=== PATIENT | female | born 1990 | race Caucasian/White ===

== ENCOUNTER 2022-10-29 20:31 | Emergency (ER) | payer OTHER ==
[2022-10-29] MEDS ORDERED: CLINDAMYCIN 150 MG (CLEOCIN) CAP PO STA (21:04)
[2022-10-29] MEDS ORDERED: RX-CLINDAMYCIN 150 MG (CLEOCIN) CAP PPK#4 PO STA (21:04)
[2022-10-29] MEDS ORDERED: CLIN-144 PO (21:10)
[2022-10-29 21:12] VITALS: BP 152/98
--- NOTE | 2022-10-29 21:14 | ED Integumentary General ---
General Chief Complaint: Skin/Wound Problems Stated Complaint: ABSCESS ON GROIN Nursing Triage Note: Pt presents with a left groin abscess that she noticed about 3 weeks ago Source: patient History of Present Illness Date Seen by Provider: Oct 29, 2022 Time Seen by Provider: 20:37 Initial Comments 32-year-old female presenting with complaints of abscess to her left lower abdomen area. This is been there about 3 to 4 weeks and has intermittently drained some. She does have a history of hidradenitis and recurrent abscesses. She denies any known history of MRSA. She had noticed some redness streaking away from the abscess today when she took a shower so she was concerned that it might be getting worse. She has a small darker area at the center of the abscess that appears to be more bruised. The abscess is just at the lower abdomen and upper part of her groin in the hair line on the left side. She denies having a fever, chills, body aches, nausea, vomiting, diarrhea. She does take doxycycline once a day to help with acne and help prevent outbreaks. She also uses a clindamycin gel to help prevent hidradenitis. She did take Bactrim in September for a different abscess. She denies any allergies to medications. Timing/Duration: getting worse (Over the last 3 to 4 weeks) Severity: moderate Location: torso (Lower abdomen and upper part of the hairline in her groin) Possible Cause: no cause identified Modifying Factors: worse with scratching Associated Symptoms: No blisters, No change in skin texture, No edema, No fever, No flushing, No headache, No hives, No jaundice, No malaise, No nasal congestion, No numbness, No pallor, No paresthesia, No petechiae, No rash, No sore throat, No swelling/mass/lumps, No tingling Allergies and Home Medications Allergies Coded Allergies: No Known Drug Allergies (Unverified , 10/29/22) Patient Home Medication List Home Medication List Reviewed: Yes Clindamycin HCl (Clindamycin HCl) 300 Mg Capsule, 300 MG PO Q8H Prescribed by: NICK WATTERS on 10/29/222109 Review of Systems Review of Systems Constitutional: No chills, No fever EENTM: no symptoms reported Respiratory: no symptoms reported Cardiovascular: no symptoms reported Gastrointestinal: no symptoms reported Genitourinary: no symptoms reported Musculoskeletal: no symptoms reported Skin: see HPI Psychiatric/Neurological: No Symptoms Reported Past Ccgtmvw-Edctlf-Nckuhe Hx Patient Social History Tobacco Use?: No Use of E-Cig and/or Vaping dev: No Substance use?: No Alcohol Use?: No Pt feels they are or have been: No Past Medical History Surgery/Hospitalization HX: Hidradenitis suppurative, recurrent boils Physical Exam Vital Signs Vital Signs - First Documented 10/29/22 20:35 Temp 36.4 Pulse 108 Resp 18 B/P (MAP) 152/98 (116) Pulse Ox 98 O2 Delivery Room Air Capillary Refill : Less Than 3 Seconds General Appearance: WD/WN, no apparent distress, obese Cardiovascular: normal peripheral pulses Gastrointestinal: normal bowel sounds, non tender, soft, no pulsatile mass Skin: warm/dry, ecchymosis (Mild bruising with erythema to the left lower abdomen and upper hairline of her groin. There is some mild fluctuance and some erythematous areas around the abscess. She does not have any streaking following a blood vessel track. There is no current drainage. There is some mild increased warmth to the area and tender to palpation.) Skin Problem Character: abscess, erythema, tenderness, warm Procedures/Interventions I&D : Site: Left lower abdomen and upper hairline of the groin Blade Size: 11 I & D Procedure: betadine prep, sterile dressing applied Progress After obtaining informed consent from the patient the area was cleaned with Betadine scrub soap. Then using 1% plain lidocaine a total of 1 mL was infiltrated in the area. Using an 11 blade scalpel a single stab incision was made and copious amounts of purulent and serosanguineous drainage came out. The culture was obtained of the drainage. Bleeding was controlled with pressure. A clean dry sterile dressing was applied. Counseled on management of the wound. There did not appear to be a large cavity area to try and pack. Given a first dose of clindamycin 300 mg by mouth here in the emergency department and a take- home pack to continue the antibiotic until she can get to the pharmacy to curing pick[facility] packer the prescription tomorrow. Counseled on follow-up and return precautions and advised that with the culture if it did show MRSA or bacteria that was resistant and needed a different antibiotic we would now and 2 to 3 days with final results by 4 to 5 days. If this occurred she would get a call so we could switch her antibiotics. Otherwise continue with omhp-mef-nqxtenn acetaminophen and ibuprofen if needed for pain. Continue to use her clindamycin gel that she has topically. Hold her doxycycline that she takes prophylactically at once a day while she is taking the clindamycin. Counseled to consider taking a probiotic for at least eat yogurt with active cultures to help protect the GI marlee. Progress/Results/Core Measures Results/Orders My Orders Orders - NICK WATTERS MD Clindamycin Capsule (Cleocin Capsule) (10/29/22 21:04) Rx-Clindamycin Capsule (Rx-Cleocin Capsu (10/29/22 21:04) Wound Culture (10/29/22 21:05) Wound Dressing-Ed (10/29/22 21:05) Vital Signs/I&O 10/29/22 10/29/22 20:35 21:12 Temp 36.4 36.4 Pulse 108 108 Resp 18 18 B/P (MAP) 152/98 (116) 152/98 Pulse Ox 98 98 O2 Delivery Room Air Room Air Blood Pressure Mean: 116 Progress Progress Note : Progress Note After obtaining informed consent from the patient the area was cleaned with Betadine scrub soap. Then using 1% plain lidocaine a total of 1 mL was infiltrated in the area. Using an 11 blade scalpel a single stab incision was made and copious amounts of purulent and serosanguineous drainage came out. The culture was obtained of the drainage. Bleeding was controlled with pressure. A clean dry sterile dressing was applied. Counseled on management of the wound. There did not appear to be a large cavity area to try and pack. Patient tolerated procedure well without any immediate complications. Given a first dose of clindamycin 300 mg by mouth here in the emergency department and a take-home pack to continue the antibiotic until she can get to the pharmacy to curing pickling packer the prescription tomorrow. Counseled on follow-up and return precautions and advised that with the culture if it did show MRSA or bacteria that was resistant and needed a different antibiotic we would now and 2 to 3 days with final results by 4 to 5 days. If this occurred she would get a call so we could switch her antibiotics. Otherwise continue with o mzp-dec-szpzmoi acetaminophen and ibuprofen if needed for pain. Continue to use her clindamycin gel that she has topically. Hold her doxycycline that she takes prophylactically at once a day while she is taking the clindamycin. Counseled to consider taking a probiotic for at least eat yogurt with active cultures to help protect the GI marlee. Departure Impression Primary Impression: Cutaneous abscess of abdominal wall Disposition: 01 HOME, SELF-CARE Condition: Stable Departure-Patient Inst. Decision time for Depature: 21:07 Referrals: DEVEN CHOU DO (PCP/Family) Primary Care Physician Patient Instructions: Abscess Incision and Drainage ED, Boil, Adult ED Add. Discharge Instructions: Hold taking the Doxycycline while you are taking the Clindamycin antibiotic. You can then restart the Doxycycline after you finish taking the course of Clindamycin over the next week. Consider taking a probiotic or at least eating yogurt with active cultures while you are on the antibiotic as it can attack the good bacteria in your gut that helps with digestion. Take 300 mg of Clindamycin by mouth every 8 hours (3 times a day) for the next week. If the culture from [facility] shows that we need a different antibiotic you will get a call to change it. However the culture does take 36-48 hours to start getting results and can take 4-5 days to get final results. You may apply heat pack to the area to help it drain and increase the antibiotic to the area. Check with your primary provider for continued concerns. Use Acetaminophen or Ibuprofen to help with pain and inflammation. You may continue to use the clindamycin gel to help with the infection as well. All discharge instructions reviewed with patient and/or family. Voiced understanding. Scripts Clindamycin HCl (Clindamycin HCl) 300 Mg Capsule 300 MG PO Q8H for abscess for 7 Days, #21 CAP 0 Refills Prov: NICK WATTERS MD 10/29/22 NICK WATTERS MD Oct 29, 2022 21:14
== END 2022-10-29 21:15 | disposition home or self-care (01) ==
LOC: ER FS 20:34
DX: L02.211 Cutaneous abscess of abdominal wall (principal); Z28.310 Unvaccinated for COVID-19
CPT/HCPCS: 87070; 87205; 99283

== ENCOUNTER 2022-11-15 04:59 | Emergency (ER) | payer OTHER ==
[~2022-11-15] VITALS: Ht 154.9 cm; Wt 108.4 kg
[~2022-11-15 04:59] MED LIST: CLIN-144 PO
--- NOTE | 2022-11-15 05:22 | ED General ---
General Chief Complaint: Oral/Throat Problems Stated Complaint: SORE THROAT,COUGH,SOB Nursing Triage Note: complaint of a sore throat and cough since last friday Source of Information: Patient Exam Limitations: No Limitations History of Present Illness Date Seen by Provider: Nov 15, 2022 Time Seen by Provider: 05:06 Initial Comments 32-year-old female with no pertinent past medical history coming in due to congestion, cough, sore throat its been going on since Friday. Has not really tried anything for it as of yet, but is unable to sleep due to the tickle in her throat and the coughing. Denies any chest pain, shortness of breath, vomiting, diarrhea, or any other concerns. LMP was 2 weeks ago. Allergies and Home Medications Allergies Coded Allergies: No Known Drug Allergies (Unverified , 10/29/22) Patient Home Medication List Home Medication List Reviewed: Yes Clindamycin HCl (Clindamycin HCl) 300 Mg Capsule, 300 MG PO Q8H Prescribed by: NICK WATTERS on 10/29/222109 Review of Systems Review of Systems Constitutional: No fever EENTM: nose congestion Respiratory: cough Cardiovascular: no symptoms reported Gastrointestinal: no symptoms reported Genitourinary: no symptoms reported Musculoskeletal: no symptoms reported Skin: no symptoms reported Psychiatric/Neurological: No Symptoms Reported Past Qppaqyf-Dhezqd-Sfjril Hx Patient Social History Substance use?: No Immunizations Up To Date Influenza Vaccine Up-to-Date: Yes; Up-to-Date First/Initial COVID19 Vaccinat: 2020 Second COVID19 Vaccination [place]: 2020 Past Medical History Surgery/Hospitalization HX: Hidradenitis suppurative, recurrent boils Physical Exam Vital Signs Vital Signs - First Documented 11/15/22 05:09 Temp 37.2 Pulse 103 Resp 20 B/P (MAP) 119/92 (101) Pulse Ox 100 O2 Delivery Room Air Capillary Refill : Less Than 3 Seconds Height, Weight, BMI Height: '" Weight: lbs. oz. kg; 45.00 BMI Method: General Appearance: No Apparent Distress, WD/WN Eyes: Bilateral Eye Normal Inspection HEENT: PERRL/EOMI, TMs Normal, Pharyngeal Erythema; No TM Abnormal (L), No TM Abnormal (R), No Tonsillar Exudate, No Tonsillar Enlargement Neck: Full Range of Motion, Normal Inspection, Non Tender, Supple Respiratory: Chest Non Tender, Lungs Clear, Normal Breath Sounds, No Accessory Muscle Use, No Respiratory Distress Cardiovascular: Regular Rate, Rhythm, No Edema, Normal Peripheral Pulses Gastrointestinal: Normal Bowel Sounds, Non Tender, Soft; No Distended, No Guarding Back: Normal Inspection, No CVA Tenderness Extremity: Normal Capillary Refill, Normal Inspection, Normal Range of Motion, Non Tender, No Calf Tenderness, No Pedal Edema Neurologic/Psychiatric: Alert, No Motor/Sensory Deficits, Normal Mood/Affect Skin: Normal Color, Warm/Dry Lymphatic: No Adenopathy Progress/Results/Core Measures Suspected Sepsis SIRS Temperature: Pulse: 103 Respiratory Rate: 20 Blood Pressure 119 /92 Mean: 101 Results/Orders My Orders Orders - JOANNA NESBITT MD Influenza A And B By Pcr (11/15/22 05:16) Covid 19 Inhouse Test (11/15/22 05:16) Vital Signs/I&O 11/15/22 05:09 Temp 37.2 Pulse 103 Resp 20 B/P (MAP) 119/92 (101) Pulse Ox 100 O2 Delivery Room Air Capillary Refill : Less Than 3 Seconds Blood Pressure Mean: 101 Progress Note : Progress Note 32-year-old female presenting for cough and congestion with difficulty sleeping because of it. ABCs were intact and vitals were stable on presentation. Physical exam with clear lung sounds and a well-appearing patient. It appears like she does have postnasal drip. Flu and COVID testing sent and are pending. Consider chest x-ray, but her oxygen is normal, lungs clear, breathing comfortably, and clinically no signs of pneumonia. Patient requesting codeine because she is unable to sleep. I discussed that he metabolism of codeine and how it is unpredictable. She states its worked in the past. I told her I was not opposed to it but she should try other things [id number] first, if they do not work then she can try this. She was then discharged home in stable condition with strict return precautions. Departure Impression Primary Impression: Post-nasal drip Additional Impression: Upper respiratory infection Qualified Codes: J06.9 - Acute upper respiratory infection, unspecified Disposition: HOME, SELF-CARE Condition: Stable Departure-Patient Inst. Decision time for Depature: 05:20 Referrals: DEVEN CHOU DO (PCP/Family) Primary Care Physician Patient Instructions: Upper Respiratory Infection ED Add. Discharge Instructions: This is a viral cough caused by the drainage from your nose. I recommend trying numf-aux-mwnxbnl things such as DayQuil and NyQuil first. If these do not work, then you can try the codeine. Try half the dose first, and if you do not notice any effects, then you can try a full dose later that day. Do not go over the recommended dose. Scripts Promethazine HCl/Codeine (Promethazine-Codeine Solution) 6.25 Mg-10 Mg/5 Ml Syrup 5 ML PO Q6H PRN for COUGH for 5 Days, #100 ML Prov: JOANNA NESBITT MD 11/15/22 Work/School Note: Work Release Form Date Seen in the Emergency Department: Nov 15, 2022 Return to Work: Nov 16, 2022 Restrictions: No Restrictions JOANNA NESBITT MD Nov 15, 2022 05:22
[2022-11-15] MEDS ORDERED: PROM473S9 PO (05:24)
[2022-11-15 05:27] VITALS: BP 119/92
== END 2022-11-15 05:27 | disposition home or self-care (01) ==
LOC: EDUNIT# 04:59 → ER FS 05:00
DX: J06.9 Acute upper respiratory infection, unspecified (principal); Z20.822 Contact with and (suspected) exposure to COVID-19
CPT/HCPCS: 87636; 99283

== ENCOUNTER → 2023-05-21 | Outpatient (CLI) | payer BC, OTHER ==
[~2023-05-21] MED LIST changes: +PROM473S9 PO
--- NOTE | 2023-05-21 11:05 | Diagnostic Imaging Report ---
PROCEDURE: Pelvic comp/transvaginal sonogram. TECHNIQUE: Complete transabdominal and transvaginal pelvic ultrasound was performed. In addition, limited pelvic Doppler was performed. INDICATION: Abnormal uterine bleeding. Uterus is anteverted measuring 6.8 x 3.5 x 4.4 cm. Endometrium is 3 mm in thickness. No myometrial mass is detected. Right ovary measures 2.6 x 1.4 x 0.9 cm, and the left ovary measures 4.5 x 3.4 x 3.0 cm. Appears to be a right-sided paraovarian cyst measuring approximately 1.9 x 1.2 cm in size. Left ovary contains multiple cysts, largest approximately 3.5 cm. There is blood flow to both ovaries. No free fluid is detected. IMPRESSION: 3.5 cm left ovarian cyst with 1.9 cm right paraovarian cyst. No other significant abnormality is detected. Dictated by: Dictated on workstation # [id number]
== END ==
LOC: RAD 09:24
PROVIDERS: ATTEND Obstetrics & Gynecology
DX: N83.202 Unspecified ovarian cyst, left side (principal); N83.201 Unspecified ovarian cyst, right side
CPT/HCPCS: 76830; 76856

== ENCOUNTER 2023-06-30 05:28 | Outpatient (CLI) | payer BC ==
[~2023-06-30] VITALS: Ht 157.5 cm; Wt 108.6 kg
[2023-06-30] MEDS ORDERED: DOXY100T2 PO (12:50)
[2023-06-30] MEDS ORDERED: NF-VITD400 PO (12:50)
[2023-06-30] MEDS ORDERED: CYAN250014 PO (12:50)
[2023-06-30] MEDS ORDERED: FOLI1TAB33 PO (12:50)
[2023-06-30] MEDS ORDERED: CLIN30GE TP (12:50)
== END 2023-06-30 13:11 | disposition home or self-care (01) ==
LOC: PREOP 05:28
PROVIDERS: ATTEND Obstetrics & Gynecology
DX: Z01.818 Encounter for other preprocedural examination (principal)

== ENCOUNTER 2023-07-07 07:36 | Day surgery (SDC) | payer BC ==
[2023-07-07] VITALS (11 sets, daily range): BP systolic 102–135; BP diastolic 50–90
[~2023-07-07] VITALS: Ht 157.5 cm; Wt 108.6 kg
[~2023-07-07 07:36] MED LIST changes: +CLIN30GE TP; +CYAN250014 PO; +DOXY100T2 PO; +FOLI1TAB33 PO; +NF-VITD400 PO
[2023-07-07] MEDS ORDERED: LACTATED RINGERS 1,000 ML 1,000 ML IV PRN (07:45)
[2023-07-07] MEDS ORDERED: LIDOCAINE PF 2% 5 ML VIAL ONE (09:16)
[2023-07-07] MEDS ORDERED: proPOfol INJECTION 200 MG/20 ML VIAL IV ONE (09:16)
[2023-07-07] MEDS ORDERED: ONDANSETRON INJECTION 4 MG/2 ML (SDV) ONE ×2 (09:16→10:20)
[2023-07-07] MEDS ORDERED: fentaNYL INJECTION 100 MCG/2 ML VIAL ONE (09:16)
[2023-07-07] MEDS ORDERED: MIDAZOLAM INJ 2 MG/2 ML VIAL ONE (09:16)
--- NOTE | 2023-07-07 09:19 | Progress Note-Pre Operative ---
Pre-Operative Progress Note Date of Available H&P: Jul 07, 2023 Date H&P Reviewed: Jul 07, 2023 Time H&P Reviewed: 09:19 History & Physical: H&P Reviewed, No changes noted Pre-Operative Diagnosis: Abnormal uterine bleeding plan for D&C hysteroscopy and endometrial ablatio JEREMY GARNER DO Jul 07, 2023 09:19
[2023-07-07] MEDS ORDERED: ACHD5005 PO (10:11)
[2023-07-07] MEDS ORDERED: IBUP-1780 PO (10:11)
--- NOTE | 2023-07-07 10:13 | Discharge Inst-Simple/Standard ---
Discharge Inst-Standard Reconcile Patient Problems Problems Reviewed?: Yes Discharge Medications New, Converted or Re-Newed RX: Transmitted to Pharmacy Patient Instructions/Follow Up Plan of Care/Instructions/FU: Follow-up in 1 week Nothing in the vagina (no sex no tampons no douching) Call if increased pain increased bleeding or temperature over 101 F Activity as Tolerated: Yes Discharge Diet: Regular Diet JEREMY GARNER DO Jul 07, 2023 10:13
[2023-07-07] MEDS ORDERED: ONDANSETRON INJECTION 4 MG/2 ML (SDV) IVP PRN (10:15)
[2023-07-07] MEDS ORDERED: fentaNYL INJECTION 100 MCG/2 ML VIAL IVP ONE (10:15)
--- NOTE | 2023-07-07 10:15 | Anesthesia-General Post-Op ---
General Patient Condition Mental Status/LOC: Same as Preop Cardiovascular: Satisfactory Nausea/Vomiting: Absent Respiratory: Satisfactory Pain: Controlled Complications: Absent Post Op Complications Complications None Follow Up Care/Instructions Patient Instructions None needed. Anesthesia/Patient Condition Patient Condition Patient is doing well, no complaints, stable vital signs, no apparent adverse anesthesia problems. No complications reported per nursing. JOSUE FALK CRNA Jul 07, 2023 10:15
[2023-07-07] MEDS ORDERED: dexAMETHasone INJ 10 MG/ML 1 ML VIAL ONE (10:20)
[2023-07-07] MEDS ORDERED: SEVOFLURANE (ULTANE) 15 ML INHAL SOLN ONE (10:20)
--- NOTE | 2023-07-07 10:20 | Hysteroscopy D&C Operative ---
Hysteroscopy D&C Note Hysteroscopy D&C Note Date of Procedure: 07/07/23 Preoperative Diagnosis: Abnormal uterine bleeding Postoperative Diagnosis: Same Surgeon: JEREMY GARNER Master Sonar Technician: [none] Anesthesia: General LMA Name of the Procedure: Hysteroscopy, dilatation and curettage Findings of the Procedure: Both ostia normal some rough tissue in the uterine cavity EBL: Minimal Specimen(s) collected/removed: Endometrial Curettings Complications: None[] Condition: []Stable to recovery room Indications for Procedure: Abnormal uterine bleeding refractory to medication. Risks, benefits and alternatives to the proposed procedure were discussed with the patient and informed consent was obtained. Description of Procedure: Informed consent was obtained and signed and patient was taken to the OR [facility]. 4 placed under general LMA anesthesia placed in the dorsolithotomy position prepped and draped usual sterile fashion. A timeout was performed. A pelvic exam under anesthesia revealed a normal-sized uterus no adnexal masses weighted speculum was placed into the posterior vaginal vault and a single-tooth tenaculum was used to grasp the anterior lip of the cervix. Uterus sounded to 8 cm the os was dilated to allow passage of the hysteroscope using sterile water as a fluid medium the hysteroscope was inserted and the uterine cavity was visualized. Both ostia were were seen and there was noted to be some rough tissue inside the uterine cavity. The hysteroscope was then removed and end ometrial curettings were obtained until there was a good uterine cry. The Jeannine ablation device was then set up. The cervical length was noted to be 3 the cavity length was noted to be 5 and the balloon was set up and it was tested and then engaged 420 seconds. The Jeannine device was then removed and the hysteroscope was then reinserted and there was noted to be a good burn th roughout the uterine cavity. The hysteroscope single-tooth tenaculum weighted speculum were all removed. The endometrial curettings were sent to pathology for further analysis and the patient was taken to recovery room in stable condition. The estimated blood loss was minimal fluids were 800 cc and urine output was 200 cc. Vitals - Labs Vital Signs - I&O Vital Signs Date Time Temp Pulse Resp B/P (MAP) Pulse Ox O2 Delivery O2 Flow Rate FiO2 07/07/23 07:45 37.1 109 20 135/90 (105) 98 Room Air JEREMY GARNER DO Jul 07, 2023 10:20
[2023-07-07] MEDS ORDERED: IBUPROFEN 800 MG TABLET PO ONE (11:45)
== END 2023-07-07 12:25 | disposition home or self-care (01) ==
LOC: SDC 07:36
PROVIDERS: ATTEND Obstetrics & Gynecology
DX: N84.0 Polyp of corpus uteri (principal); N92.1 Excessive and frequent menstruation with irregular cycle; N92.0 Excessive and frequent menstruation with regular cycle; E66.01 Morbid (severe) obesity due to excess calories; Z68.41 Body mass index [BMI] 40.0-44.9, adult
CPT/HCPCS: 84703; 87081